=== PATIENT | female | born 1970 | race African-American/Black ===

== ENCOUNTER 2017-07-04 14:43 | Emergency (ER) | payer MEDICAID ==
[~2017-07-04] VITALS: Ht 160 cm; Wt 100.0 kg
[2017-07-04] MEDS ORDERED: IPRATROPIUM/ALBUTEROL 0.5-3(2.5)MG/3ML NEB HHN ONE (15:00)
[2017-07-04] MEDS ORDERED: METHYLPREDNISOLONE SOD SUCC 125 MG/2 ML VIAL IM ONE (15:00)
[2017-07-04] MEDS ORDERED: ALBUTEROL (0.083%) 2.5MG/3ML NEB HHN STA (16:21)
[2017-07-04] MEDS ORDERED: AZITHROMYCIN 500 MG TABLET PO STA (16:21)
[2017-07-04 19:57] VITALS: BP 143/82
== END 2017-07-04 19:58 | disposition home or self-care (01) ==
LOC: ER 16:30
DX: J45.901 Unspecified asthma with (acute) exacerbation (principal); R03.0 Elevated blood-pressure reading, without diagnosis of hypertension
CPT/HCPCS: 71045; 87804; 94640; 96372; 99285; J2930; J7611; J7620; Z7610

== ENCOUNTER 2019-02-22 15:44 | Emergency (ER) | payer MEDICAID ==
[~2019-02-22] VITALS: Ht 162.6 cm; Wt 82.0 kg
[2019-02-22] MEDS ORDERED: HYDROCODONE/ACETAMINOPHEN 5/325MG TABLET PO ONE (18:30)
[2019-02-22] MEDS ORDERED: KETOROLAC 30MG/ML VIAL IM ONE (18:30)
[2019-02-22] MEDS ORDERED: HYDROCHLOROTHIAZIDE 25MG TABLET PO ONE (18:30)
[2019-02-22] MEDS ORDERED: LISINOPRIL 10MG TABLET PO ONE (18:30)
[2019-02-22 19:14] VITALS: BP 155/70
== END 2019-02-22 19:14 | disposition home or self-care (01) ==
LOC: ER 15:44
DX: M54.30 Sciatica, unspecified side (principal); I10 Essential (primary) hypertension; J45.909 Unspecified asthma, uncomplicated; F12.10 Cannabis abuse, uncomplicated; Z98.890 Other specified postprocedural states
CPT/HCPCS: 96372; 99283; J1885